=== PATIENT | female | born 1955 | race Caucasian/White ===

== ENCOUNTER 2017-01-26 14:31 | Emergency (ER) | payer OTHER ==
[~2017-01-26 14:31] MED LIST: ALPRAZOLAM PO; CERTAGEN PO; DOXYCYCLINE PO; EFFEXOR PO; FLEXERIL PO; PREDNISONE PO; PREMARIN PO; PRILOSEC PO; TUSSIN MAX15 MG/5 M1 PO; VIT E PO; VITAMIN B 6 PO
[2017-03-25] MEDS ORDERED: ALBUTEROL17 GM INH (04:40)
[2017-03-25] MEDS ORDERED: NEURONTIN PO (04:46)
[2017-03-25] MEDS ORDERED: SYNTHROID PO (04:49)
[2017-03-25] MEDS ORDERED: ADVAIR 45-21 (13:21)
[2017-03-25] MEDS ORDERED: HYDROCODON-ACE1 EAC5 PO (13:22)
[2017-03-25] MEDS ORDERED: SIMVASTATIN20 MG PO (13:23)
[2017-03-25] MEDS ORDERED: VITAMIN D3 (13:25)
[2017-03-25] MEDS ORDERED: VIT B12 PO (13:25)
[2017-03-25] MEDS ORDERED: MELOXICAM7.5 MG PO (13:29)
[2017-03-25] MEDS ORDERED: LINESS PO (13:29)
[2017-03-25] MEDS ORDERED: IPRAT-ALBUT 0.5-3 ML (13:30)
[2017-03-25] MEDS ORDERED: LINZESS72 MCG PO (13:46)
== END 2017-01-26 16:14 | disposition home or self-care (01) ==
LOC: SED 14:31
DX: S01.01XA Laceration without foreign body of scalp, initial encounter (principal); K21.9 Gastro-esophageal reflux disease without esophagitis; E03.9 Hypothyroidism, unspecified; Z88.2 Allergy status to sulfonamides; Z79.899 Other long term (current) drug therapy; W22.8XXA Striking against or struck by other objects, initial encounter; Y92.009 Unspecified place in unspecified non-institutional (private) residence as the place of occurrence of the external cause
CPT/HCPCS: 12002; 99283

== ENCOUNTER → 2017-03-25 | Day surgery (SDC) | payer OTHER ==
[~2017-03-25] MED LIST changes: +ADVAIR 45-21; +ALBUTEROL17 GM INH; +HYDROCODON-ACE1 EAC5 PO; +IPRAT-ALBUT 0.5-3 ML; +LINESS PO; +LINZESS72 MCG PO; +MELOXICAM7.5 MG PO; +NEURONTIN PO; +SIMVASTATIN20 MG PO; +SYNTHROID PO; +VIT B12 PO; +VITAMIN D3
--- NOTE | ~2017-03-25 | EKG ---
PATIENT: BETZY CORDERO UNIT #: [id number] Ventricular Rate: 81 BPM Atrial Rate: 81 BPM P-R Interval: 176 ms QRS Duration: 74 ms Q-T Interval: 392 ms QTC Calculation(Bezet): 455 ms P [place]: 26 degrees Calculated R [place]: 16 degrees Calculated T [place]: 40 degrees Diagnosis Line: Normal sinus rhythm Diagnosis Line: Poor R wave progression questionable lead position Diagnosis Line: or body habitus Diagnosis Line: Borderline ECG Diagnosis Line: No previous ECGs available Diagnosis Line: Confirmed by VINCE JACINTO MD ([id number]) on Diagnosis Line: 03/27/2017 9:54:29 AM INTERPRETING MD: EMILY
--- NOTE | ~2017-03-25 | CR63 ---
[facility] A Service of [facility] & [facility] RADIOLOGY TEXT RESULTS PATIENT: BETZY CORDERO LOCATION: [facility] : 51 UNIT #: [id number] AGE: [address]: Alla Mtz MD SEX: F ORDER DR: [id number] [facility] [address] [place], [place] [address] [id number] O MR#: [id number] Acc #: [id number] NAME: BETZY CORDERO : 1955 SEX: F STUDY DATE/TIME: 03/25/2017 14:15 UNIT: [facility] ROOM: STUDY DESCRIPTION: CR Chest 2 View Attending Physician: Alla Mtz M.D. Ordering Physician: Alla Mtz M.D. Primary Care Physician: Tasha Morrison M.D. MEDICAL IMAGING REPORT This report is preliminary unless electronic signature is present EXAM 2 views chest 03/25/2017 HISTORY Preop right shoulder surgery today. TECHNIQUE PA and lateral radiographs of the chest are presented. COMPARISON 10/20/2015 FINDINGS Old healed right rib fractures. No change. No acute-appearing bony abnormality. The heart and mediastinum are normal in size and contour. The lungs are well inflated. There is no evidence of acute infectious or inflammatory disease, pleural effusion or pneumothorax. No suspicious nodule. Prior cholecystectomy. Dictated by... Sergio Salcido M.D. THIS IS AN ELECTRONICALLY VERIFIED REPORT Sergio Salcido M.D. at 03/26/2017 10:49 PM CARLOS/zaynab TD: 03/25/2017 17:58 JOB #: [id number] MEDICAL IMAGING REPORT Page 1 of 1 COPY
--- NOTE | ~2017-03-25 | OR ---
Unit #: [id number] #: [id number] Patient: BETZY CORDERO [id number] [address] [address] [id number] O MR#: [id number] NAME: BETZY CORDERO ROOM: Date of Procedure: 03/25/2017 Admission Date: 03/25/2017 Surgeon: Alla Mtz M.D. : 1955 Attending Physician: Alla Mtz M.D. Primary Care Physician: Tasha Morrison M.D. OPERATIVE REPORT PREOPERATIVE DIAGNOSES 1. Impingement with rotator cuff tear, right shoulder. 2. Degenerative joint disease, acromioclavicular joint. POSTOPERATIVE DIAGNOSES AND FINDINGS 1. Labral tear and degenerative biceps tendon. 2. Full-thickness tear of the supraspinatus. PROCEDURES PERFORMED 1. Arthroscopy, debridement of the labrum and biceps tenotomy and tenodesis. 2. Subacromial decompression. 3. Mini-open rotator cuff repair, right shoulder. 4. Injection of Depo-Medrol, right acromioclavicular joint. HISTORY AND FINDINGS The patient is a 61-year-old, been having progressively increasing pain in the right shoulder with difficulty with overhead activity and has been having pain at night. She has been treated conservatively with medications, injections, and an MRI revealed a full-thickness cuff tear. As she failed conservative measures, was offered arthroscopic evaluation and repair. Risks of anesthesia and complications of surgery have been reviewed including infection, neurovascular injury, loss of fixation, need for further surgery, stiffness, the patient voices understanding and wishes to proceed. DESCRIPTION OF PROCEDURE After induction of general anesthesia, the patient was placed in a beach chair position with all bony prominences adequately padded. The right shoulder was examined. There was no clinical instability. It was possible to take it through a full range of motion. Then, the right shoulder was prepped and draped in the usual sterile manner. Time-out was called. Operative site was confirmed. The right shoulder was infiltrated with 1% Xylocaine with epinephrine. Then through a posterior portal, arthroscopy was performed. The superior labrum and the biceps were checked revealed type 1 tear involving the labrum superiorly and anteriorly. Anterior labrum and the glenohumeral ligaments were intact. Inferior labrum and recess were normal. Posterior labrum was intact. Glenohumeral joint revealed grade 1 to 2 chondromalacic changes. The biceps tendon was followed to the intertubercular sulcus revealed significant degeneration of the biceps tendon. The subscapularis showed some degenerative changes, but was found to be intact. Supraspinatus at Unit #: [id number] #: [id number] Patient: BETZY CORDERO its insertion revealed a full-thickness tear. The infraspinatus and the posterior cuff were intact. At this point, anterolateral portal was established and a shaver was introduced and the SLAP lesion was debrided and it was decided to do a biceps tenotomy, so the biceps tendon was tagged using a FiberWire, using a scorpion, then using an arthroscopic scissors, a biceps tenotomy was completed. Then using a radiofrequency wand, the labrum was trimmed down and also the undersurface of the rotator cuff was shaved to a stable surface and following which, the scope was withdrawn and introduced into the subacromial space. Subacromial bursectomy with anterior acromioplasty was performed. Then, the bursal side of the cuff tear was examined and revealed a full-thickness tear. At this point, it was decided to do a mini arthrotomy approximately 2.5 to 3 cm long incision was made. Incision deepened down and the deltoid fibers were split, and the tag on the biceps tendon was pulled through. Then, additional bursectomy was performed and the cuff was examined and revealed a full-thickness tear involving the cuff of approximately 2 cm. Then, the cuff tear was enlarged posteriorly, where there was partly a high-grade type of tear. Using a 15-blade knife, the greater tuberosity was abraded, using a shaver and a rasp to cortical bleeding bone. Then after thorough irrigation, two FiberTape were placed on the cuff and two 4.75 SwiveLock anchors were then placed. The anterior FiberTape along with the biceps FiberWire was anchored to the SwiveLock, then the posterior FiberTape was repaired to separate SwiveLock anchor. Good repair of the rotator cuff was obtained along with a biceps tenodesis. The sutures were then cut down. Wound was copiously irrigated. Hemostasis was obtained, and then 0 Vicryl was used to repair the deltoid and 3-0 nylon for the skin. Prior to which, 40 mg of Depo-Medrol and 4 mL of 0.25% Marcaine was instilled into the AC joint. Sterile compression dressing and shoulder immobilizer were given. Blood loss approximately 20 mL. The patient received preoperative antibiotics. She tolerated the procedure well and was transferred to the recovery room in satisfactory condition. POSTOPERATIVE INSTRUCTIONS 1. Ice packs to the right shoulder and shoulder immobilization. 2. Range of motion to the wrist and elbow. 3. [place] 7.5 mg p.o. q.6 hours p.r.n. 4. She was given a followup appointment. Return to my office in 1 week. If any problems, to contact me. Dictated by... Wesly Cary/river TD: 03/26/2017 02:29 JOB #: [id number] OPERATIVE REPORT Page 1 of 1 X Alla Mtz MD X PROCEDURE OPERATIVE NOTE
[2017-03-25 13:37] LABS: HEMOGLOBIN 13.7 gm/dL (12.0-16.0); MEAN CORPUSCULAR HEMOGLOBIN 29.4 PG (28-34); MEAN CORPUSCULAR HGB CONC 33.4 g/dL (30-36); MEAN PLATELET VOLUME 7.6 FL (6.5-11.5); RED BLOOD COUNT 4.65 X10e (3.90-5.30); RED CELL DISTRIBUTION WIDTH 13.4 % (11.0-15.5); WHITE BLOOD COUNT 8.2 X10e3 (4.0-10.5)
[2017-03-25 13:57] LABS: BUN/CREATININE RATIO 13.75; CALCIUM SERUM 9.3 mg/dL (8.4-10.2); CREATININE SERUM 0.8 mg/dL (0.6-1.4); GLOM FILT RATE Estimated 78.5 mL/min (>60); POTASSIUM 4.4 mmol/L (3.5-5.1)
[2017-03-25 13:58] LABS: URINE APPEARANCE CLEAR; URINE BILIRUBIN NEG (NEG); URINE BLOOD 1+ (NEG); URINE COLOR YELLOW; URINE GLUCOSE NEG (NEG); URINE KETONE NEG (NEG); URINE LEUKOCYTE ESTERASE TRACE (NEG); URINE NITRATE NEG (NEG); URINE PROTEIN NEG (NEG); URINE SPECIFIC GRAVITY 1.015 (1.003-1.035); URINE UROBILINOGEN 0.2 MG/DL (NEG)
[2017-03-25 14:00] LABS: URINE BACTERIA AUWI NEG (NEGATIVE); URINE SQUAMOUS EPITHELIAL CELL MOD /[HPF]; UWBCS1 AUWI 0-2 (0-5)
[2017-03-25 14:01] LABS: CULTURE INDICATED? NO
== END | disposition home or self-care (01) ==
LOC: CSUR 12:55
PROVIDERS: Orthopaedic Surgery
DX: M75.121 Complete rotator cuff tear or rupture of right shoulder, not specified as traumatic (principal); M75.41 Impingement syndrome of right shoulder; K21.9 Gastro-esophageal reflux disease without esophagitis; E03.9 Hypothyroidism, unspecified; E78.5 Hyperlipidemia, unspecified; J44.9 Chronic obstructive pulmonary disease, unspecified; M19.011 Primary osteoarthritis, right shoulder; Z79.899 Other long term (current) drug therapy; Z79.1 Long term (current) use of non-steroidal anti-inflammatories (NSAID); Z90.49 Acquired absence of other specified parts of digestive tract; Z90.710 Acquired absence of both cervix and uterus; Z98.890 Other specified postprocedural states; Z79.51 Long term (current) use of inhaled steroids
CPT/HCPCS: 71020; 80048; 81003; 85027; 93005; C1713; J0171; J0330; J0690; J1030; J1100; J2250; J2370; J2405; J2710; J2795; J3010